=== PATIENT | female | born 1980 | race Two or more races ===

== ENCOUNTER → 2025-02-03 | Outpatient (CLI) | payer MEDICAID, SELFPAY ==
--- NOTE | 2025-02-03 08:00 | XR_ITS ---
Examination: Screening digital mammography, bilateral Computer aided detection 3-D breast Tomosynthesis, bilateral Date and time of exam: February 03, 2025 0849 hours Compared to mammograms dating to August 02, 2021 Indication: Screening Technique: Nonmagnified MLO, CC views of the breasts to been obtained, reconstructed from 3-D Tomosynthesis images. R2 computer aided detection program utilized for evaluation of suspicious masses and/or abnormal calcifications. 3-D Tomosynthesis images obtained. Findings: The breasts are heterogeneously dense, which may obscure small masses The breast architecture is nodular. There are 2 nodules each approximately 10 mm in the outer right breast, one of which is in the upper right breast on the MLO view Benign calcifications Impression: BI-RADS Category 0: Incomplete: Need additional imaging evaluation Recommend follow-up spot tomographic views upper outer quadrant right breast to assess nodules in the outer right breast described above.
== END | disposition home or self-care (01) ==
LOC: CDIM 08:41
PROVIDERS: PCP Physician Assistant; Referring Provider Physician Assistant; Visit Provider Physician Assistant
DX: Z12.31 Encounter for screening mammogram for malignant neoplasm of breast (principal); N63.10 Unspecified lump in the right breast, unspecified quadrant
CPT/HCPCS: 77063; 77067